=== PATIENT | female | born 1930 | race Caucasian/White ===

== ENCOUNTER 2016-12-18 15:15 | Emergency (ER) | payer MEDICARE ==
[~2016-12-18] VITALS: Ht 154.9 cm; Wt 70.0 kg
[~2016-12-18 15:15] MED LIST: AMOXICILLIN875 MG OR; BABY ASPIRIN81 MG OR; HYDROXYZ HCL25 MG OR; MULTI VIT PO; NAMENDA10 MG PO; PLAVIX75 MG PO
[2016-12-18] MEDS ORDERED: NAPROSYN500 MG PO (17:01)
[2016-12-18 17:04] VITALS: BP 130/78
== END 2016-12-18 17:15 | disposition home or self-care (01) ==
LOC: ED 15:15
DX: S20.211A Contusion of right front wall of thorax, initial encounter (principal); S83.91XA Sprain of unspecified site of right knee, initial encounter; E78.00 Pure hypercholesterolemia, unspecified; W01.190A Fall on same level from slipping, tripping and stumbling with subsequent striking against furniture, initial encounter; Y93.E9 Activity, other interior property and clothing maintenance; Y92.009 Unspecified place in unspecified non-institutional (private) residence as the place of occurrence of the external cause; Z95.5 Presence of coronary angioplasty implant and graft; Z95.1 Presence of aortocoronary bypass graft; Z85.038 Personal history of other malignant neoplasm of large intestine

== ENCOUNTER 2021-06-12 12:52 | Emergency (ER) | payer MEDICARE ==
[~2021-06-12] VITALS: Ht 154.9 cm; Wt 75.0 kg
[~2021-06-12 12:52] MED LIST changes: +NAPROSYN500 MG PO
== END 2021-06-12 13:58 | disposition left against medical advice (07) ==
LOC: ED 12:52 → LWOBS 13:57
DX: Z53.21 Procedure and treatment not carried out due to patient leaving prior to being seen by health care provider (principal)

== ENCOUNTER 2022-02-24 17:55 | Emergency (ER) | payer MEDICARE ==
[2022-02-24] VITALS (16 sets, daily range): BP systolic 113–207; BP diastolic 61–105
[~2022-02-24] VITALS: Ht 154.9 cm; Wt 61.3 kg
[2022-02-24 18:22] LABS: IMMATURE GRANULOCYTES 0.1 % (0.0-5.0); MEAN CELL VOLUME 93.7 fL CALC (80.0-100.0); MEAN CORPUSCULAR HGB CONC 33.1 g/dL CAL (32.0-36.0); NEUT# 3.22 thou/uL (2.00-7.15); RED BLOOD COUNT 4.26 mill/uL (4.20-5.60); RED CELL DISTRI WIDTH 13.1 % (11.5-15.5)
[2022-02-24 18:27] LABS: HEMATOCRIT 39.9 % (37.0-47.0); HEMOGLOBIN 13.2 g/dl (12.0-16.0)
[2022-02-24 18:45] LABS: ALBUMIN 4.2 g/dL (3.2-5.0); ALKALINE PHOSPHATASE 89 u/l (38-126); ANION GAP 15 (6-22 (CALC)); BUN 24 mg/dL (8-23); BUN/CREATININE RATIO 36 (12-20 (CALC)); CARBON DIOXIDE 25 mmol/l (22-30); CHLORIDE 104 mmol/l (95-108); CREATININE 0.7 mg/dL (0.5-1.0); GFR FOR AFR.AMER. > 60 ML/MIN (>=60 (CALC)); GFR OTHER RACES > 60 ML/MIN (>=60 (CALC)); POTASSIUM 4.3 mmol/l (3.5-5.1); SGOT/AST 20 u/l (9-36); SODIUM 140 mmol/l (137-146); TOTAL PROTEIN 6.9 g/dL (6.3-8.2)
[2022-02-24 18:50] LABS: BILIRUBIN, TOTAL 0.3 mg/dL (0.0-1.4)
[2022-02-24 19:36] LABS: PROTHROMBIN TIME 9.8 SECONDS (9.0-12.5)
[2022-02-24 19:46] LABS: D-DIMER 0.96 mg/L (0.19-0.60)
[2022-02-24] MEDS ORDERED: TORADOL PO (22:13)
== END 2022-02-24 22:28 | disposition home or self-care (01) ==
LOC: ED 17:55
PROVIDERS: Family Medicine
DX: I10 Essential (primary) hypertension (principal); R07.89 Other chest pain
CPT/HCPCS: Q9967